=== PATIENT | male | born 1990 | race Caucasian/White ===

== ENCOUNTER 2020-12-19 12:18 | Emergency (ER) | payer OTHER ==
[~2020-12-19] VITALS: Ht 188 cm; Wt 63.5 kg
[~2020-12-19 12:18] MED LIST: BACTRIM DS TAB1 EAC1; KLONOPIN0.5 MG; KLONOPIN0.5 MG PO; ONDANSETRON ODT4 MG; PROZAC20 MG PO; XANAX 0.25 MG0.25 MG PO; XANAX 0.5 MG0.5 MG PO
[2020-12-19 13:01] LABS: ABSOLUTE NEUTROPHILS 3.2 thou/uL (1.4-8.2); EOSINOPHILS 1.5 % (0.0-3.0); HEMATOCRIT 43.2 % (42.0-52.0); HEMOGLOBIN 14.4 gm/dL (14.0-18.0); LYMPHOCYTES 30.6 % (24.0-44.0); MCHC 33.4 g/dL (28.0-37.0); MCV 89.9 fL (80.0-100.0); MONOCYTES 9.6 % (1.0-8.0); PLATELET COUNT 320 thou/uL (150-400); POLYS 57.3 % (36.0-66.0); RBC 4.81 mil/uL (4.50-6.00); RDW 13.2 % (10.5-14.5); WBC 5.6 thou/uL (4.0-11.0)
[2020-12-19 13:12] LABS: URINE BILIRUBIN NEGATIVE (Negative); URINE BLOOD NEGATIVE (Negative); URINE CLARITY CLEAR; URINE COLOR YELLOW; URINE GLUCOSE-RANDOM* NEGATIVE (Negative); URINE KETONES NEGATIVE (Negative); URINE LEUKOCYTES-REFLEX NEGATIVE (Negative); URINE NITRITE-REFLEX NEGATIVE (Negative); URINE PROTEIN (DIPSTICK) NEGATIVE (Negative); URINE SPECIFIC GRAVITY 1.025 (1.005-1.035); URINE UROBILINOGEN 0.2 E.U./dl (0.2-1.0)
[2020-12-19 13:15] LABS: CALCIUM 9.1 mg/dL (8.5-10.1); CREATININE 1.3 mg/dL (0.7-1.3); POTASSIUM 3.8 mmol/L (3.5-5.1)
[2020-12-19 13:23] LABS: ALBUMIN 4.2 g/dL (3.4-5.0); TOTAL BILIRUBIN 0.7 mg/dL (0.2-1.0); TOTAL PROTEIN 7.3 g/dL (6.4-8.2)
[2020-12-19 14:30] VITALS: BP 117/64
--- NOTE | 2020-12-20 07:05 | EKG ---
[address] [address] ELECTROCARDIOGRAM REPORT Name: PREET PINON Room #: [facility] [id number] Admission: 12/19/20 Attend Phys: Discharge: 12/19/20 Date of : [birth year] Report #: [id number] [facility] ED Test Date: 2020-12-19 Test Time: 12:44:17 Pat Name: PREET PINON Department: Room: Gender: M Tuckpointer: [id number] : 1990 Requested By: Herberth Berry Order Number: [id number] MD: David Vann Measurements Intervals [place] Rate: 85 P: 63 [place]: 155 QRS: 74 QRSD: 78 T: 39 QT: 328 QTc: 390 Interpretive Statements Sinus rhythm Compared to ECG 07/28/2014 23:15:17 Sinus arrhythmia no longer present Right-axis deviation no longer present Electronically Signed On 12-20-2020 7:04:59 MEDICAL TRANSLATOR by David Vann [email or web address] <ELECTRONICALLY SIGNED> By: David Vann MD, [facility] 12/20/20 0704 1244 1244 David Vann MD, FACC /EPI
== END 2020-12-19 14:31 | disposition home or self-care (01) ==
LOC: ER 12:18
PROVIDERS: Emergency Medicine
DX: R10.12 Left upper quadrant pain (principal); F41.9 Anxiety disorder, unspecified; Z79.891 Long term (current) use of opiate analgesic; Z79.899 Other long term (current) drug therapy; Z91.041 Radiographic dye allergy status